=== PATIENT | female | born 1945 | race Two or more races ===

== ENCOUNTER 2024-01-10 07:21 | Inpatient (IN) | payer OTHER ==
[~2024-01-10] VITALS: Ht 160 cm; Wt 90.7 kg
[~2024-01-10 07:21] MED LIST: AVAPRO75 MG PO; DORYX100 M1 PO; DOXYCYCLINE HY100 MG PO; HIBICLENS118 ML TP; JARDIANCE10 MG PO; NORVASC2.5 M1 PO; SYNTHROID50 MCG PO; TOPROL XL50 M1 PO
[2024-01-10] MEDS ORDERED: KETOROLAC TROMETHAMINE 60 MG VIAL IM STA (09:06)
[2024-01-10] MEDS ORDERED: levoFLOXacin IN DEXTROSE 5 % 500MG/100ML PIGGYBAG IV STA (09:07)
[2024-01-10] MEDS ORDERED: KETOROLAC TROMETHAMINE 60 MG VIAL IM ONE (09:15)
[2024-01-10] MEDS ORDERED: levoFLOXacin IN DEXTROSE 5 % 500MG/100ML PIGGYBAG IV ONE (09:16)
[2024-01-10 10:49] LABS: HEMATOCRIT 41.7 % (36.0-45.00); HEMOGLOBIN 13.8 g/dL (12.0-15.00); MEAN CELL VOLUME 87.7 fL (80.00-100.00); PLATELET COUNT 215 K/uL (150-450); RED BLOOD COUNT 4.75 M/uL (4.00-6.00); RED CELL DISTRIBUTION WIDTH 14.7 % (11.5-14.5)
[2024-01-10 12:06] LABS: ERYTHROCYTE SEDIMENTATION RATE 24 mm/hr
[2024-01-10 14:49] LABS: INR 1.08; PARTIAL THROMBOPLASTIN TIME 30.9 SECONDS (22.0-34.0); PROTHROMBIN TIME 11.3 SECONDS (9.0-11.5)
[2024-01-10 14:56] LABS: CALCIUM 10.2 mg/dL (8.5-10.1); CREATININE SERUM 0.77 mg/dL (0.55-1.02); GFR 72.88; POTASSIUM 5.13 mEq/L (3.5-5.1)
[2024-01-10] MEDS ORDERED: VANCOMYCIN HCL 1,000 MG VIAL IV SCH (18:30)
[2024-01-10] MEDS ORDERED: 0.9 % SODIUM CHLORIDE 1,000 ML IV SCH (18:30)
[2024-01-10 18:37] LABS: URINE APPEARANCE Clear; URINE BILIRRUBIN Negative (NEGATIVE); URINE BLOOD Negative; URINE COLOR Yellow; URINE LEUKOCYTE Trace; URINE NITRATE Negative; URINE PROTEIN Negative (NEGATIVE); URINE UROBILINOGEN 0.2 E.U./dl
[2024-01-10 18:41] LABS: URINE BACTERIA 963.8 uL (0.0-1933); URINE EPITHELIAL CELLS 44.5 uL (0.0-38.8); URINE RBC 8.8 uL (0.0-20.8); URINE WBC 79.1 uL (0.0-23.2)
[2024-01-10] MEDS ORDERED: ONDANSETRON HCL 4 MG in 0.9 % SODIUM CHLORIDE 50 ML IV PRN (18:45)
[2024-01-10] MEDS ORDERED: ACETAMINOPHEN 500 MG GEL..CAP PO PRN (18:45)
[2024-01-10 19:04] LABS: URINE GLUCOSE >=1000 MG/DL (NEGATIVE)
[2024-01-10] MEDS ORDERED: CEFEPIME HCL 1,000 MG in DEXTROSE 5 % IN WATER 50 ML IV SCH (21:00)
[2024-01-11] MEDS ORDERED: LEVOTHYROXINE SODIUM 50 MCG TABLET PO SCH (06:00)
[2024-01-11] MEDS ORDERED: METOPROLOL SUCCINATE 50 MG TAB.SR.24H PO SCH (09:00)
[2024-01-11] MEDS ORDERED: ENOXAPARIN SODIUM 40 MG/0.4 ML SYRINGE SUBCUTANEO SCH (09:00)
[2024-01-11] MEDS ORDERED: PATIENTS OWN MEDICATION (MEDICAMENTO EN PISO) PO SCH (09:00)
[2024-01-11] MEDS ORDERED: FAMOTIDINE/PF 20 MG in 0.9 % SODIUM CHLORIDE 8 ML IV PUSH SCH (09:00)
[2024-01-11] MEDS ORDERED: IRBESARTAN 75 MG TABLET PO SCH (09:00)
[2024-01-11] MEDS ORDERED: VANCOMYCIN HCL 5 MG/ML REDILUIDO IV SCH (21:00)
[2024-01-11] MEDS ORDERED: VANCOMYCIN HCL 1,000 MG VIAL IV SCH (21:00)
[2024-01-11] MEDS ORDERED: CEFEPIME HCL 2,000 MG VIAL IV SCH (21:00)
[2024-01-12 08:23] LABS: HEMATOCRIT 34.9 % (36.0-45.00); HEMOGLOBIN 11.8 g/dL (12.0-15.00); MEAN CELL VOLUME 87.7 fL (80.00-100.00); MEAN CORPUSCULAR HEMOGLOBIN 29.7 pg (27.00-32.0); MEAN CORPUSCULAR HGB CONC 33.9 g/dl (32.0-36.0); PLATELET COUNT 156 K/uL (150-450); RED BLOOD COUNT 3.98 M/uL (4.00-6.00); RED CELL DISTRIBUTION WIDTH 14.3 % (11.5-14.5)
[2024-01-12 09:57] LABS: ALBUMIN 2.9 gm/dL (3.4-5.0); BILIRUBIN TOTAL 0.52 mg/dL (0.3-1.2); CALCIUM 8.7 mg/dL (8.5-10.1); CREATININE SERUM 0.72 mg/dL (0.55-1.02); GFR 78.75; GLOBULINA 3.1 G/DL (2.4-3.5); MAGNESIUM 2.1 mg/dL (1.8-2.4); PHOSPHOROUS 3.2 mg/dL (2.5-4.9); POTASSIUM 4.47 mEq/L (3.5-5.1)
[2024-01-12 10:02] LABS: C-REACTIVE PROTEIN 0.49 MG/DL (0.00-0.29)
[2024-01-14] MEDS ORDERED: FAMOtidine 20 MG TABLET PO SCH (21:00)
[2024-01-15 08:08] LABS: HEMATOCRIT 32.2 % (36.0-45.00); HEMOGLOBIN 11.1 g/dL (12.0-15.00); MEAN CELL VOLUME 86.7 fL (80.00-100.00); MEAN CORPUSCULAR HEMOGLOBIN 29.8 pg (27.00-32.0); MEAN CORPUSCULAR HGB CONC 34.3 g/dl (32.0-36.0); RED BLOOD COUNT 3.72 M/uL (4.00-6.00); RED CELL DISTRIBUTION WIDTH 14.7 % (11.5-14.5)
[2024-01-15 08:15] LABS: PLATELET COUNT 129 K/uL (150-450)
[2024-01-15 08:20] LABS: ERYTHROCYTE SEDIMENTATION RATE 9 mm/hr
[2024-01-15 08:26] LABS: ALBUMIN 2.9 gm/dL (3.4-5.0); BILIRUBIN TOTAL 0.51 mg/dL (0.3-1.2); CALCIUM 8.7 mg/dL (8.5-10.1); CREATININE SERUM 0.7 mg/dL (0.55-1.02); GFR 81.36; GLOBULINA 3.1 G/DL (2.4-3.5); PHOSPHOROUS 3.3 mg/dL (2.5-4.9); POTASSIUM 4.49 mEq/L (3.5-5.1)
[2024-01-15 08:28] LABS: C-REACTIVE PROTEIN 0.95 MG/DL (0.00-0.29)
[2024-01-16] MEDS ORDERED: NORVASC2.5 M1 PO (10:50)
[2024-01-16] MEDS ORDERED: IRBESARTAN75 MG PO (10:51)
[2024-01-16] MEDS ORDERED: FAMOTIDINE20 MG PO (10:51)
[2024-01-16] MEDS ORDERED: TOPROL XL50 M1 PO (10:51)
[2024-01-16] MEDS ORDERED: LEVOTHYROXINE50 MCG PO (10:52)
[2024-01-16] MEDS ORDERED: JARDIANCE10 MG PO (10:52)
[2024-01-16] MEDS ORDERED: BACTRIM DS TAB1 EACH PO (10:54)
== END 2024-01-16 14:51 | disposition home or self-care (01) | DRG 872 ==
LOC: ER 07:22 → SEC-K 18:44 → MEDI 18:44
PROVIDERS: General Practice; Internal Medicine Infectious Disease; ADMIT Internal Medicine; ATTEND Internal Medicine
PROC: BP3CZZZ Magnetic Resonance Imaging (MRI) of Right Hand/Finger Joint (ICD-10-PCS; principal; 2024-01-11)
DX: A41.9 Sepsis, unspecified organism (principal); L03.113 Cellulitis of right upper limb; I10 Essential (primary) hypertension; E03.9 Hypothyroidism, unspecified; E11.9 Type 2 diabetes mellitus without complications; Z79.84 Long term (current) use of oral hypoglycemic drugs